=== PATIENT | male | born 1970 | race Caucasian/White ===

== ENCOUNTER 2016-07-28 21:37 | Emergency (ER) | payer MEDICAID ==
--- NOTE | 2016-07-28 21:59 | ED Physician Chart ---
Chief Complaint/HPI - Patient Information Date Seen:: 07/28/16 Time Seen:: 21:40 Chief Complaint:: syncope History of Present Illness:: fainted while sitting. Theodore sleepy before he fainted. No chest pain or SOB. Has had cough for two days. No fever. No prior syncopal episodes. [employer]' s EKG: sinus tach; rate 101. Historian:: Patient, EMS Review:: Nurse's Note Reviewed Review of Systems - Review of Systems General/Constitutional: No fever, No chills Skin: No skin lesions Head: No headache Eyes: No loss of vision ENT: No earache Neck: No neck pain Cardio Vascular: No chest pain Pulmonary: Cough GI: No nausea, No vomiting G/U: No dysuria Musculoskeletal: No bone or joint pain Endocrine: No polyuria Psychiatric: Prior psych history Hematopoietic: No bruising Allergic/Immuno: No urticaria Neurological: Syncope Past Medical History - Past Medical History Past Medical History: Other (PTSD; chronic back pain ) Family History: None Social History: Smoker, No Alcohol Surgical History: other (tonsillectomy) Psychiatricy History: Other (PTSD) Medication: Reviewed Physical Exam - Physical Examination General/Constitutional: Well-developed, well-nourished, Alert, No distress Head: Atraumatic Eyes: Lids, conjuctiva normal, PERRL Skin: Nl inspection, No rash, No skin lesions, No ecchymosis ENMT: External ears, nose nl, TM canals nl, Nasal exam nl, Lips, teeth, gums nl , Oropharynx nl, Tonsils nl Other ENMT comments:: nasal abrasions Neck: No nuchal rigidity Respiratory: Nl effort/Exclusion, Clear to Auscultation, No Wheeze/Rhonchi/Rales Cardio Vascular: RRR, No murmur, gallop, rubs, NL S1 S2 GI: No tenderness/rebounding/guarding, No organomegaly, No hernia : No CVA tenderness Extremities: Normal digits & nails Neuro/Psych: No focal deficits Misc: Normal back Labs/Radiology/EKG Results - EKG Interpretations Rhythm: NSR [place]: normal Rate: 94 ED Septic Shock - . Is Septic Shock (SBP<90, OR Lactate>4 mmol\L) present?: No Reassessment (Disposition) - Reassessment Reassessment Condition:: Improved - Diagnosis Diagnosis:: Vasovagal syncope - Aftercare/Follow up Instructions Aftercare/Follow-Up Instructions:: Refer to Discharge Instructions - Patient Disposition Discharge/Transfer:: Home Condition at Disposition:: Stable, Improved
== END 2016-07-28 23:30 | disposition home or self-care (01) ==
LOC: ER 21:37
DX: R55 Syncope and collapse (principal); F17.200 Nicotine dependence, unspecified, uncomplicated; G89.29 Other chronic pain; M54.9 Dorsalgia, unspecified
CPT/HCPCS: 93005; Z7502